=== PATIENT | female | born 1975 | race Caucasian/White ===

== ENCOUNTER 2023-07-11 09:13 | Outpatient (CLI) | payer OTHER | END 2023-07-11 18:02 | disposition home or self-care (01) | LOC: SNM 09:13 | PROVIDERS: ATTEND Colon & Rectal Surgery | DX: R10.9 Unspecified abdominal pain (principal) | CPT/HCPCS: 78226; A9537 ==

== ENCOUNTER 2023-08-09 12:25 | Emergency (ER) | payer OTHER ==
[~2023-08-09] VITALS: Ht 162.6 cm; Wt 59.0 kg
[2023-08-09 12:25] VITALS: BP_SYST 134; PULSE 110; RESP 19; TEMP 98.2; O2SAT 99
[2023-08-09 14:11] LABS: BASOPHILS # (AUTO) 0.1 K/uL (0.0-0.2); BASOPHILS % (AUTO) 0.6 % (0.0-2.0); EOSINOPHILS # (AUTO) 0.1 K/uL (0.0-0.4); EOSINOPHILS % (AUTO) 1.4 % (0.0-4.0); HEMATOCRIT 43.6 % (36-48); HEMOGLOBIN 14.2 g/dL (12.0-16.0); LYMPHOCYTES # (AUTO) 1.2 K/uL (1.0-5.5); LYMPHOCYTES % (AUTO) 12.9 % (20.5-51.5); MEAN CORPUSCULAR HEMOGLOBIN 30 pg (27-31); MEAN CORPUSCULAR HGB CONC 33 % (32-36); MEAN CORPUSCULAR VOLUME 91 fL (79.0-98.0); MONOCYTES # (AUTO) 0.7 K/uL (0.0-1.0); MONOCYTES % (AUTO) 7.2 % (1.7-9.3); NEUTROPHILS # (AUTO) 7.3 K/uL (1.8-7.7); NEUTROPHILS % (AUTO) 77.9 % (40.0-70.0); PLATELET COUNT (AUTO) 270 K/uL (130-430); RED BLOOD CELL COUNT(AUTO) 4.82 MIL/uL (4.2-6.2); RED CELL DISTRIBUTION WIDTH 13.3 % (9.0-15.0); WHITE BLOOD COUNT (AUTO) 9.3 K/uL (4.8-10.8)
[2023-08-09 14:27] LABS: CALCIUM 8.7 mg/dL (8.4-11.0); CREATININE 0.55 mg/dL (0.55-1.30); POTASSIUM 3.7 mmol/L (3.5-5.1)
[2023-08-09 14:31] LABS: ALBUMIN 3.9 g/dL (3.4-4.8); BILIRUBIN,DIRECT 0.1 mg/dL (0.0-0.3); TOTAL BILIRUBIN 0.6 mg/dL (0.0-1.0); TOTAL PROTEIN, SERUM 8.8 g/dL (6.4-8.3)
[2023-08-09 15:05] VITALS: TEMP 98.3
[2023-08-09] MEDS ORDERED: ONDA-8 TL (16:36)
[2023-08-09] MEDS ORDERED: HYDR-3917 PO (16:36)
[2023-08-09 17:01] VITALS: BP_SYST 121; PULSE 97; RESP 18; O2SAT 99
[2023-08-10 08:06] LABS: HEPATITIS A AB, IgM Negative (Negative); HEPATITIS B CORE AB, IgM Negative (Negative); HEPATITIS B SURFACE AG Negative (Negative); HEPATITIS C VIRUS AB Non Reactive (Non Reactive)
== END 2023-08-09 17:01 | disposition home or self-care (01) ==
LOC: SED 12:25
DX: R10.11 Right upper quadrant pain (principal); R74.01 Elevation of levels of liver transaminase levels; Z79.899 Other long term (current) drug therapy
CPT/HCPCS: 36415; 76705; 80048; 80074; 80076; 83690; 85025; 99284

== ENCOUNTER 2023-10-16 06:04 | Day surgery (SDC) | payer OTHER ==
[~2023-10-16] VITALS: Ht 162.6 cm; Wt 58.1 kg
[~2023-10-16 06:04] MED LIST: CEFAZOLIN SOD 2 GM in D5W 50 ML IV ONE; HYDR-3917 PO; LR 1,000 ML IV SCH; ONDA-8 TL
[2023-10-16 07:11] LABS: HCG,QUAL RESULT NEGATIVE (NEGATIVE)
[2023-10-16 07:18] VITALS: PULSE 73; RESP 20; TEMP 98.3; O2SAT 100
[2023-10-16] MEDS ORDERED: ONDANSETRON HCL 4 MG/2 ML VIAL IVP PRN (07:30)
[2023-10-16] MEDS ORDERED: MEPERIDINE HCL/PF 25 MG/ML DISP.SYRIN IVP PRN (07:30)
[2023-10-16] MEDS ORDERED: MORPHINE 4 MG INJ. 4 MG/ML VIAL IVP PRN (07:30)
[2023-10-16] MEDS ORDERED: LR 1,000 ML IV SCH (07:30)
[2023-10-16] MEDS ORDERED: fentaNYL CITRATE/PF 100 MCG/2 ML AMP ONE (07:41)
[2023-10-16] MEDS ORDERED: ROCURONIUM BROMIDE 10 MG/ML (ZEMURON) ONE ×2 (07:41→10:01)
[2023-10-16] MEDS ORDERED: SEVOFLURANE 15 MIN GAS INH ONE ×2 (07:41→10:01)
[2023-10-16] MEDS ORDERED: ONDANSETRON HCL 4 MG/2 ML VIAL ONE ×2 (07:41→10:01)
[2023-10-16] MEDS ORDERED: SUGAMMADEX SODIUM 200 MG/2 ML VIAL IV ONE ×2 (07:41→10:01)
[2023-10-16] MEDS ORDERED: BUPIVACAINE /PF 0.25% 30 ML VIAL INJ ONE ×2 (07:41→10:01)
[2023-10-16] MEDS ORDERED: MIDAZOLAM HCL/PF 2 MG/2 ML SYRINGE ONE (07:41)
[2023-10-16] MEDS ORDERED: LR 1,000 ML IV.SOLN IV ONE ×2 (07:41→10:01)
[2023-10-16] MEDS ORDERED: KETOROLAC TROMETHAMINE 30 MG VIAL ONE (07:41)
[2023-10-16] MEDS ORDERED: PROPOFOL 200MG/ 20ML VIAL (DIPRIVAN) IV ONE ×2 (07:41→10:01)
[2023-10-16] MEDS ORDERED: DEXAMETHASONE SOD PHOSPHATE 4 MG/ML VIAL ONE ×2 (07:41→10:01)
[2023-10-16] MEDS ORDERED: WATER FOR IRRIGATION,STERILE 1,000 ML IRRIG.SOLN IR ONE (07:41)
[2023-10-16] MEDS ORDERED: SUCCINYLCHOLINE CHLORIDE 20 MG/ML(QUELICIN) ONE ×2 (07:41→10:01)
[2023-10-16] MEDS ORDERED: ACETAMINOPHEN I.V. 1000 MG 100 ML IV ONE (08:50)
[2023-10-16 09:24] VITALS: BP_SYST 113
[2023-10-16] MEDS ORDERED: D5/0.45 NS 1,000 ML IV SCH (09:30)
[2023-10-16] MEDS ORDERED: HYDROcodone/ACETAMIN 5-325 MG TAB (NORCO/ VICODIN) PO PRN ×2 (09:30)
[2023-10-16] MEDS: HYDROmorphone 1 MG/ML INJ. CARTRIDGE IVP PRN (09:59)
[2023-10-16] MEDS ORDERED: WATER FOR INJECTION,STERILE 20 ML VIAL IV ONE (10:01)
[2023-10-16] MEDS ORDERED: HYDROmorphone 1 MG/ML INJ. CARTRIDGE ONE (10:01)
== END 2023-10-16 12:15 | disposition home or self-care (01) ==
LOC: SDS 06:04 → SMU 06:05 → SDS 12:15
PROVIDERS: ATTEND Colon & Rectal Surgery
DX: K81.1 Chronic cholecystitis (principal); K42.0 Umbilical hernia with obstruction, without gangrene; Z90.722 Acquired absence of ovaries, bilateral; Z79.899 Other long term (current) drug therapy; Z82.0 Family history of epilepsy and other diseases of the nervous system; Z80.3 Family history of malignant neoplasm of breast; Z83.438 Family history of other disorder of lipoprotein metabolism and other lipidemia; Z82.49 Family history of ischemic heart disease and other diseases of the circulatory system; Z80.41 Family history of malignant neoplasm of ovary
CPT/HCPCS: 49592; 47562; 87081; 84703; 88302; 88304; J3490 ×2; J0690; J1100; J1885; J3465; J2405; J2704; J0330; J3010; J1170; Q9967; J7060; J7120; C1758; C1727; J0131